=== PATIENT | female | born 1975 | race Caucasian/White ===

== ENCOUNTER 2019-04-28 06:21 | Observation (INO) ==
--- NOTE | 2019-04-05 12:42 | Anesthesiology Consultation ---
Date of Service April 05, 2019 Assessment & Plan (1) Encounter for pre-operative examination: - Check test AM DOS Chart Review Chart Review: Pending: Refer to Additional Notes / Consult section (pending p reop testing (labs)) and Patient seen in Pre Admission Testing Teaching & Discussion Pre-Anesthesia Teaching/Discussion Notes: Instructed NPO after midnight before surgery,except medications with 15 cc of water. Medication instructions provided according to the PAT guidelines. History Surgery Operation Date: 04/28/19 08:35 Proposed Procedures p Robotic Total Laparoscopic Hysterectomy - rKisty Colon DO Height/Weight Height: 5 ft 7 in Weight: 82 kg Allergies Allergy/AdvReac Type Severity Reaction Status Date / Time No Known Drug Allergies Allergy Verified 03/31/19 13:37 Medications Home Medications Medication Instructions Recorded Confirmed Last Taken lactobacillus combination no.4 3,000 mmu cells PO QAM 03/31/19 03/31/19 Unknown [Probiotic] Past Medical History Medical History Anemia Crohns disease "in remission" s/p bowel resection Endometriosis Menorrhagia Pelvic pain Exercise / Class Metabolic Activity II 4-5 Yardwork/Stairs/Walk up hill Past Family History Family History Sister Family history of diabetes mellitus Father Family history of diabetes mellitus Coronary heart disease Hypertension Grandmother (Paternal) Family history of diabetes mellitus Grandmother (Maternal) Family hx of colon cancer Colorectal cancer Mother Breast cancer Hypertension Atrial fibrillation Grandfather (Paternal) Myocardial infarction Aunt Ovarian cancer Son No problems noted. Other No family history of adverse response to anesthesia Past Surgical History Surgical History History of bilateral tubal ligation History of bowel resection 6 inches History of cardiac cath 10+ YEARS AGO= NO STENTS History of colonoscopy History of endometrial ablation History of esophagogastroduodenoscopy (EGD) History of wisdom tooth extraction Hx of LASIK S/P dilation and curettage Past Anesthesia History No Hx of Anesthesia Complications and No Family Hx of Anesthesia Complications History of PONV No Hx of PONV and No Hx of Motion Sickness Social History Smoking Status: Never smoker Do You Dip or Chew Tobacco: No Hx Alcohol Use: Yes Alcohol type: hard liquor alcohol intake frequency: holidays/special occasions only Hx Substance Use: No substance use type: does not use Review of Systems URI symptoms resolved. Patient denies chest pain, shortness of breath, dyspnea on exertion, wheezing, palpitations. Physical Exam Vital Signs VITALS BP 131/86 P 63 TEMP 98.5 SP02 98%RA RESP 18 PHYSICAL Full neck and c-spine range of motion. Full TMJ range of motion. TMD 3.5 finger breaths Mallampati Score 2 Dentition: intact Lungs: clear throughout to auscultation Cardiac: regular rate and rhythm, no murmurs noted Spine: normal Carotid arteries: negative bruit Extremities: no edema
[2019-04-05 13:07] LABS: Basophils # (auto) 0.05 K/uL (0-0.2); Basophils % (auto) 0.7 %; Eosinophils # (auto) 0.05 K/uL (0-0.5); Eosinophils % (auto) 0.7 %; Hematocrit (blood only) 39.2 % (37-47); Hemoglobin 13.6 g/dL (12.0-16.0); Immature Granulocytes # (auto) 0.02 K/uL (0.00-0.02); Immature Granulocytes % (auto) 0.3 %; Lymphocytes # (auto) 2.06 K/uL (1.2-3.4); Lymphocytes % (auto) 28.7 %; Mean Corpuscular Hemoglobin 30.7 pg (25-34); Mean Corpuscular Hgb Conc 34.7 g/dL (32-36); Mean Corpuscular Volume 88.5 fL (80-100); Mean Platelet Volume 10.1 fL (7.4-10.4); Monocytes # (auto) 0.31 K/uL (0.11-0.59); Monocytes % (auto) 4.3 %; Neutrophils % (auto) 65.3 %; Platelet Count 255 K/uL (130-400); RDW Coefficient of Variation 12.8 % (11.5-14.5); RDW Standard Deviation 41.7 fL (36.4-46.3); Red Blood Count 4.43 M/uL (4.2-5.4); White Blood Count 7.19 K/uL (4.8-10.8)
[2019-04-05 13:14] LABS: Appearance Urine Turbid (Clear); Bacteria Urine Automated Negative (Negative); Blood Urine 3+ (Negative); Epithelial Cell Urine Auto >30 /lpf (0-5); Glucose Urine UA Negative (Negative); Ketones Urine Trace (Negative); Leukocyte Esterase Urine 1+ (Negative); Nitrite Urine Negative (Negative); Protein Urine 2+ (Negative); RBC Urine Automated >30 /hpf (0-4); Specific Gravity Urine 1.036 (1.000-1.030); Urobilinogen Urine Negative (Negative)
[2019-04-05 13:15] LABS: Color Urine Amber
[2019-04-05 13:27] LABS: Bilirubin Urine Negative (Negative); Ictotest Urine Negative (Negative)
[2019-04-05 14:57] LABS: BUN Creatinine Ratio 30.2 (10-20); Calcium 9.1 mg/dl (8.5-10.1); Creatinine Clr Calc Pharmacy 112.1 ml/min; Est GFR (African American) 119.7; Est GFR (Non-African American) 103.3
[~2019-04-28 06:21] MED LIST: CEFAZOLIN 2000MG 2,000 MG/15 ML SYR IV SCH; LR 15ML/HR IV SCH
[2019-04-28] MEDS ORDERED: MIDAZOLAM HCL 1 MG/ML 2ML VIAL ONE (06:33)
[2019-04-28] MEDS ORDERED: fentaNYL citrate 100 MCG/2 ML VIAL ONE ×2 (06:33→07:48)
[2019-04-28] MEDS ORDERED: ACETAMINOPHEN 1000 MG/100 ML IV IV ONE (06:50)
[2019-04-28] MEDS ORDERED: BUPIVACAINE 0.5 % 5 MG/1 ML MPF 30ML VIAL ONE (06:54)
[2019-04-28] MEDS ORDERED: METHYLENE BLUE 0.5% 10 ML VIAL ONE (06:54)
[2019-04-28] MEDS ORDERED: ROCURONIUM BROMIDE 10 MG/ML 5 ML VIAL ONE ×3 (06:55→08:27)
[2019-04-28] MEDS ORDERED: LIDOCAINE HCL 2% 2 ML VIAL/AMP(20MG/ML) INFIL ONE (06:55)
[2019-04-28] MEDS ORDERED: PROPOFOL IV EMULSION 10 MG/ML 20 ML VIAL IV ONE (06:55)
[2019-04-28] MEDS ORDERED: DEXAMETHASONE SOD INJ 4 MG/ML VIAL ONE (06:55)
[2019-04-28] MEDS ORDERED: ONDANSETRON INJ 2 MG/ML 2 ML VIAL ONE (06:55)
[2019-04-28] MEDS ORDERED: ONDANSETRON INJ 2 MG/ML 2 ML VIAL IV PRN ×2 (07:06→10:31)
[2019-04-28] MEDS ORDERED: ePHEDrine sulfate 50 MG/ML AMP IV PRN (07:06)
[2019-04-28] MEDS ORDERED: ATROPINE SULFATE 0.1 MG/ML 10ML SYR IV PRN (07:06)
--- NOTE | 2019-04-28 07:23 | History & Physical Bridge Note ---
Date of Service April 28, 2019 History & Physical Bridge Note I have examined the patient, reviewed the History & Physical and in the interval since the performance of the History & Physical I have noted the following changes of clinical significance: no changes noted
[2019-04-28] MEDS ORDERED: HYDROmorphone INJ 2 MG/ML SYR/VIAL ONE (08:28)
[2019-04-28] MEDS ORDERED: GLYCOPYRROLATE 0.2 MG/ML VIAL ONE (10:09)
[2019-04-28] MEDS ORDERED: NEOSTIGMINE METHYLSULFATE 5 MG/5 ML SYR ONE (10:09)
[2019-04-28] MEDS ORDERED: KETOROLAC 30 MG/ML VIAL IV PRN (10:31)
[2019-04-28] MEDS ORDERED: NALOXONE HCL 0.4 MG/1 ML VIAL/CARP IV PRN (10:31)
[2019-04-28] MEDS ORDERED: MAGNESIUM HYDROXIDE SUSP 30 ML UDC PO PRN (10:31)
[2019-04-28] MEDS ORDERED: IBUPROFEN 600 MG TAB PO PRN (10:31)
[2019-04-28] MEDS ORDERED: bisacodyL 10 MG SUPP PR PRN (10:31)
[2019-04-28] MEDS ORDERED: PROMETHAZINE HCL 25 MG in SODIUM CHLORIDE 0.9% 50 ML IV PRN (10:31)
[2019-04-28] MEDS ORDERED: HYDROmorphone HCL 0.5MG/ML 50 ML CASSETTE IV PRN (10:31)
--- NOTE | 2019-04-28 10:31 | Post Operative Brief Note ---
PG Immediate Post Op with CF Date of Surgery April 28, 2019 Pre & Post Diagnosis Operation Date: 04/28/19 07:30 Pre-Op Diagnosis: Menorrhagia, Anemia, Pelvic pain Post-Op Diagnosis: Menorrhagia, Anemia, Pelvic pain I identified the patient and participated in the time-out.: Yes Procedure Operation Date: 04/28/19 07:30 Actual Procedures p Total Abdominal Hysterectomy, bilateral salpingectomy - Kristy Colon DO Surgeon Kristy Colon DO Shearing Shed Worker Comfort Dixon MD Estimated Blood Loss 50 Findings See Below Uterus with small fibroid, posterior aspect. Small implants of endometriosis. Normal appearing bilateral ovaries. Tubes s/p tubal ligation. Large amount of adhesive disease between bowel/peritoneum, omentum/peritoneum, mostly on left abdomen/left pelvis. Fluids 1100ml Specimens Specimen Description: Permanent Specimen A: Uterus, cervix, and bilateral fallopian tubes Drains Maki Catheter (275 clear yellow) Anesthesia Type General Disposition Accompanied Patient To Recovery: No Disposition: Recovery Room
[2019-04-28] MEDS ORDERED: SODIUM CHLORIDE 0.9% 1000ML 1,000 ML IV SCH (10:45)
[2019-04-28] MEDS: fentaNYL citrate 100 MCG/2 ML VIAL IV PRN ×4 (10:52→11:29)
--- NOTE | 2019-04-28 12:09 | Anesthesiology Progress Note ---
Date of Service April 28, 2019 Anesthesia Post Procedure Vital Signs Vital Signs: Temp Pulse Pulse Resp BP BP Pulse Ox 04/28/19 12:05 98.8 F 80 15 138/91 96 04/28/19 11:50 68 13 124/86 99 04/28/19 11:40 87 18 125/85 99 04/28/19 11:30 66 15 124/82 99 04/28/19 11:20 98.6 F 89 19 130/85 100 04/28/19 11:10 64 16 132/78 99 04/28/19 11:00 66 18 127/81 99 04/28/19 10:50 72 25 H 122/77 99 04/28/19 10:42 98.6 F 73 23 121/80 99 04/28/19 06:40 98.2 F 78 18 149/96 H 97 Pain Intensity Lower Anterior Abdomen: Pain Intensity: 5 Transfer of Care Handoff Completed per policy Notes Mental Status: alert / awake / arousable and participated in evaluation Patient Amnestic to Procedure: Yes Nausea / Vomiting: adequately controlled Pain: adequately controlled Airway Patency, RR, SpO2: stable & adequate BP & HR: stable & adequate Hydration State: stable & adequate Anesthetic Complications: no major complications apparent and Pt Satisfied with anesthetic care
[2019-04-28] MEDS ORDERED: HYDROmorphone Bolus from PCA IV STA (12:20)
[2019-04-28] MEDS: HYDROmorphone PCA 30 MG/30 ML IV PRN ×2 (13:11→23:43)
--- NOTE | 2019-04-28 17:28 | Operative Report ---
PG Post Operative Report Pre & Post Diagnosis Operation Date: 04/28/19 07:30 Pre-Op Diagnosis: Menorrhagia, Anemia, Pelvic pain Post-Op Diagnosis: Menorrhagia, Anemia, Pelvic pain I identified the patient and participated in the time-out.: Yes Procedure Operation Date: 04/28/19 07:30 Actual Procedures s Attempted Laparoscopic Total Hysterectomy(Not Applicable) - Kristy Colon DO p Abdominal Open Total Hysterectomy and Bilateral Salpingectomy(Not Applicable) - Kristy Colon DO Surgeon Kristy Colon DO Steam Conditioning Operator Comfort Dixon MD Estimated Blood Loss 50 Findings See Below Fluids Uterus with small fibroid, posterior aspect. Small implants of endometriosis. Normal appearing bilateral ovaries. Tubes s/p tubal ligation. Large amount of adhesive disease between bowel/peritoneum, omentum/peritoneum, mostly on left abdomen/left pelvis. Specimens Uterus, bilateral fallopian tubes Drains Maki catheter, clear yellow Anesthesia Type General Complications none Disposition Accompanied Patient To Recovery: No Disposition: Recovery Room Indications Patient is a 43-year-old G1, P1 with a history of heavy menses and history of endometriosis. She had an endometrial ablation, tried OCP, these have not helped. She has cramping with bleeding and change the pad a few times per day when on her menstrual cycle. She felt like her symptoms were not helped at all by endometrial ablation or control, and is ready for permanent surgical solution. Her Pap smear in 2019 was normal. HPV negative. Endometrial biopsy 2019 was negative. She is a surgical history of tubal ligation, arthroscopic endometriosis resection, bowel resection and endometrial ablation. She desired hysterectomy to relieve symptoms. Description of Procedure Patient was seen in preoperative holding area, risks benefits alternatives to surgery reviewed. Elected to proceed with the case. She is taken the operating room, where 2 g of Ancef were given preoperatively. She received general anesthesia and was prepared and draped in the usual sterile fashion with feet in yellowfin stirrups in the dorsolithotomy position. Timeout was confirmed. A Maki catheter was placed in the bladder. A weighted speculum was placed in the vagina, the cervix was visualized and its anterior lip was grasped with single-tooth tenaculum. Stay sutures were used to transfix uterine manipulator to the cervix. Gloves were changed, attention was turned to the abdomen. Using the Optiview scope, the supraumbilical trocar was placed into the intra- abdominal cavity. Intra-abdominal placement was confirmed, and the abdomen was insufflated with CO2 gas. Cavity was visualized, and noted to have a large amount of adhesive disease. Bowel and omentum were both adhered to the abdominal wall, especially on the left abdominal side. This was so extensive, that I felt that it was impossible to place a lateral trocar at all. There were no clear areas on the left abdominal wall or any location that I felt safe to place instrumentation. There were multiple pockets of scar tissue. I felt that placing midline trochars and right-sided trochars only would prevent ability to work on the left side of the uterus. Therefore, I made the decision to convert to an open hysterectomy. I called patient's , Sharif, and discussed the need for conversion to open hysterectomy. He was agreeable. Patient and I have discussed this possibility in the office preoperatively and she was ready for this possibility. Laparoscopic instruments were removed, the fascial incision was reapproximated at the umbilicus with 0 Vicryl, the skin incision was reapproximated using 4-0 Vicryl in a running subcuticular stitch. The uterine manipulator was removed from the vagina. Her prior Pfannenstiel incision scar was to create a new Pfannenstiel incision, utilizing more space on the right side of the abdomen and then the left, due to known adhesive disease on her left side. This was taken down to the fascia, the fascia was nicked at midline, using Bovie over hemostat technique the fascia was . The superior aspect of the fascial incision was grasped with Marcie clamps x2, elevated off the underlying rectus abdominis muscles, and dissected with sharp and blunt dissection. A similar fashion, the inferior aspect of the fascial incision was dissected. The peritoneum was entered bluntly at midline, and this incision was extended. An O'Venu-O'Nieves retractor was placed in the cavity with bowel packed with moist lap sponges. Jayshree clamps were placed at the uterine cornua. Bilateral fallopian tubes were transected from their mesosalpinx using Bovie cautery. They were sent to pathology. The bilateral round ligaments were suture-ligated and transected. Bilateral sides of the uterus were skeletonized, and the bladder flap was taken down. Bilateral ureters were visualized peristalsing, and dissection of the broad ligament allowed these to fall laterally, and out of the field. The right utero-ovarian ligament was taken down and tied off with 0 Vicryl, a second suture was used to transfix this pedicle. In a similar fashion, the left utero- ovarian ligament was taken down. Bilateral uterine vessels were clamped with curved Michelle clamps, and these pedicles were transected and suture ligated with 0 Vicryl. Multiple pedicles were created on bilateral sides with straight [place] clamps. They were similarly suture-ligated. Right angle Michelle clamps were used to clamp just below the cervix, and the uterus and cervix were amputated from the vagina. The vaginal cuff was stitched closed in a running and locked stitch with removal of the right angle clamps. The pelvis was irrigated, all pedicles were evaluated, and found to be hemostatic. There was a small amount of oozing bleeding at the omentum, all bleeding areas were coagulated. Packing and retractor removed from the pelvis, the patient was then removed from Trendelenburg position, and reevaluated for hemostasis. Excellent hemostasis was observed. The fascial incision was reapproximated using 1 PDS in a running stitch. The subcutaneous tissue was irrigated, and found to be hemostatic. This was reapproximated using 2-0 plain gut suture in a running stitch. The skin was reapproximated using 4-0 Vicryl in a running subcuticular stitch. Steri-Strips and a bandage were applied to each incision. Patient was taken to the recovery area in stable and good condition. Sponge, instrument, needle counts correct at the conclusion of the case x2. I attest to the content of the Intraoperative Record and any orders documented therein. Any exceptions are noted below.
--- NOTE | 2019-04-28 18:14 | Gynecologic Progress Note ---
Date of Service April 28, 2019 Assessment & Plan (1) S/P total abdominal hysterectomy: POD#0 doing well. I discussed with her the events of surgery - attempt at laparoscopic approach, conversion to open hysterectomy. We discussed adhesive disease. Will increase ambulation, increase diet. Anticipate up and walking and tolerating PO by tomorrow morning. Will keep SCDs in place until she is fully ambulatory. When tolerating PO, will switch to PO pain meds and stop LICENSED STAFF MFT. Subjective POD#0. Doing well. Awake and talking. Using Dilaudid LICENSED STAFF MFT for pain control. Is also having some gas pains, will start simethicone. Has tolerated sips of clear liquids. Is not yet ambulatory, has SCDs in place. Physical Exam Physical Exam: Awake, alert, oriented. Abdomen is soft, appropriately tender. Nondistended. Bandages CDI. Results & Data Vital Signs (Past 12 Hours) Vital Signs Temp Pulse Pulse Pulse Resp BP BP 04/28/19 16:10 37.0 C 99 H 16 128/82 04/28/19 15:10 93 H 16 123/80 04/28/19 14:10 97 H 17 132/86 04/28/19 13:10 103 H 16 127/83 04/28/19 12:50 90 16 119/79 04/28/19 12:20 36.6 C 85 18 123/82 04/28/19 12:05 37.1 C 80 15 138/91 04/28/19 11:50 68 13 124/86 04/28/19 11:40 87 18 125/85 04/28/19 11:30 66 15 124/82 04/28/19 11:20 37 C 89 19 130/85 04/28/19 11:10 64 16 132/78 04/28/19 11:00 66 18 127/81 04/28/19 10:50 72 25 H 122/77 04/28/19 10:42 37 C 73 23 121/80 04/28/19 06:40 36.8 C 78 18 149/96 H Pulse Ox 04/28/19 16:10 96 04/28/19 15:10 100 04/28/19 14:10 99 04/28/19 13:10 99 04/28/19 12:50 95 04/28/19 12:20 96 04/28/19 12:05 96 04/28/19 11:50 99 04/28/19 11:40 99 04/28/19 11:30 99 04/28/19 11:20 100 04/28/19 11:10 99 04/28/19 11:00 99 04/28/19 10:50 99 04/28/19 10:42 99 04/28/19 06:40 97
[2019-04-28] MEDS: SIMETHICONE 80 MG CHEW PO PRN (18:39)
[2019-04-28] MEDS: DOCUSATE SODIUM 100 MG CAP PO SCH (20:37)
[2019-04-28] MEDS: LACTATED RINGER'S 1,000 ML IV SCH (23:01)
[2019-04-29] MEDS: SIMETHICONE 80 MG CHEW PO PRN ×2 (00:30→15:13)
[2019-04-29] MEDS: LACTATED RINGER'S 1,000 ML IV SCH ×2 (06:22→13:20)
[2019-04-29 06:43] LABS: Basophils # (auto) 0.05 K/uL (0-0.2); Basophils % (auto) 0.5 %; Eosinophils # (auto) 0.07 K/uL (0-0.5); Eosinophils % (auto) 0.7 %; Hematocrit (blood only) 38.6 % (37-47); Hemoglobin 13.3 g/dL (12.0-16.0); Immature Granulocytes # (auto) 0.02 K/uL (0.00-0.02); Immature Granulocytes % (auto) 0.2 %; Lymphocytes # (auto) 1.55 K/uL (1.2-3.4); Lymphocytes % (auto) 16.4 %; Mean Corpuscular Hemoglobin 31.3 pg (25-34); Mean Corpuscular Hgb Conc 34.5 g/dL (32-36); Mean Corpuscular Volume 90.8 fL (80-100); Mean Platelet Volume 10.2 fL (7.4-10.4); Monocytes # (auto) 0.52 K/uL (0.11-0.59); Monocytes % (auto) 5.5 %; Neutrophils # (auto) 7.23 K/uL (1.4-6.5); Neutrophils % (auto) 76.7 %; Platelet Count 195 K/uL (130-400); RDW Coefficient of Variation 13.3 % (11.5-14.5); RDW Standard Deviation 43.7 fL (36.4-46.3); Red Blood Count 4.25 M/uL (4.2-5.4); White Blood Count 9.44 K/uL (4.8-10.8)
[2019-04-29 07:14] LABS: BUN Creatinine Ratio 19.8 (10-20); Calcium 8.6 mg/dl (8.5-10.1); Creatinine Clr Calc Pharmacy 155.2 ml/min; Est GFR (African American) 136.6; Est GFR (Non-African American) 117.8
[2019-04-29] MEDS ORDERED: ACETAMINOPHEN 500 MG TAB PO PRN (07:18)
--- NOTE | 2019-04-29 07:29 | Gynecologic Progress Note ---
Date of Service April 29, 2019 Assessment & Plan (1) S/P total abdominal hysterectomy: POD#1 s/p CEDRIC,BROOKE. Doing well. Will plan to advance diet today, when she is tolerating PO, will switch to PO percocet. She has been told by GI that she should avoid Motrin due to her Crohn's disease, therefore will stick with PO percocet, and PO tylenol if she does not need the opioid component. Incentive spirometer ordered, SCDs when nonambulatory. Labs reviewed, normal. Anticipate DC home tomorrow. Subjective POD#1 doing well. 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 Ambulating somewhat in room, is sitting upright in chair. Large amount of clear urine output overnight in ramirez, this was removed this morning. Pain is somewhat controlled - the gas pains are bothersome to her. Passing small amounts of flatus. Physical Exam Physical Exam: Constitutional: alert, in no acute distress, well nourished, w ell developed and healthy appearing. Skin: normal skin color and pigmentation, normal skin turgor and no rash. Pulmonary: no respiratory distress, normal respiratory rhythm and effort and clear bilateral breath sounds. Cardiovascular: heart rate and rhythm were normal, normal S1 and S2 and no murmurs present. Abdomen: soft, non-tender, incision still bandaged - ok to take off 24h after surgery. Neurological: The patient was oriented to person, place, and time. Mood and affect were appropriate. Extremities: No edema, no calf tenderness. Results & Data Vital Signs (Past 12 Hours) Vital Signs Temp Pulse Resp BP Pulse Ox 04/29/19 04:00 37 C 92 H 15 153/94 H 98 04/28/19 23:20 37 C 88 15 143/95 H 98 04/28/19 19:40 36.9 C 96 H 17 142/86 H 97
[2019-04-29] MEDS: LACTOBACILLUS ACIDOPHILUS (FLORANEX) TAB PO SCH (09:06)
[2019-04-29] MEDS: OXYCODONE/ACETAMINOPHEN 5mg/325mg TAB PO PRN ×4 (09:06→21:10)
[2019-04-29] MEDS: DOCUSATE SODIUM 100 MG CAP PO SCH ×2 (09:06→21:14)
--- NOTE | 2019-04-29 14:43 | Anesthesiology Progress Note ---
Date of Service April 29, 2019 Anesthesia Post Procedure Vital Signs Vital Signs: Temp Pulse Resp BP Pulse Ox 04/29/19 12:20 36.3 C L 82 20 134/92 99 04/29/19 07:25 37 C 82 16 127/83 100 04/29/19 04:00 37 C 92 H 15 153/94 H 98 04/28/19 23:20 37 C 88 15 143/95 H 98 04/28/19 19:40 36.9 C 96 H 17 142/86 H 97 04/28/19 16:10 37.0 C 99 H 16 128/82 96 04/28/19 15:10 93 H 16 123/80 100 Pain Intensity Lower Anterior Abdomen: Pain Intensity: 4 Notes Mental Status: alert / awake / arousable Patient Amnestic to Procedure: Yes Nausea / Vomiting: adequately controlled Pain: adequately controlled Airway Patency, RR, SpO2: stable & adequate BP & HR: stable & adequate Hydration State: stable & adequate Anesthetic Complications: no major complications apparent and Pt Satisfied with anesthetic care
[2019-04-30 06:11] LABS: Basophils # (auto) 0.03 K/uL (0-0.2); Basophils % (auto) 0.4 %; Eosinophils # (auto) 0.29 K/uL (0-0.5); Eosinophils % (auto) 4.2 %; Hematocrit (blood only) 35.7 % (37-47); Hemoglobin 12.1 g/dL (12.0-16.0); Immature Granulocytes # (auto) 0.02 K/uL (0.00-0.02); Immature Granulocytes % (auto) 0.3 %; Lymphocytes # (auto) 1.22 K/uL (1.2-3.4); Lymphocytes % (auto) 17.8 %; Mean Corpuscular Hgb Conc 33.9 g/dL (32-36); Mean Corpuscular Volume 91.5 fL (80-100); Mean Platelet Volume 10.2 fL (7.4-10.4); Monocytes # (auto) 0.51 K/uL (0.11-0.59); Monocytes % (auto) 7.5 %; Neutrophils # (auto) 4.77 K/uL (1.4-6.5); Neutrophils % (auto) 69.8 %; Platelet Count 170 K/uL (130-400); RDW Coefficient of Variation 13.4 % (11.5-14.5); RDW Standard Deviation 44.4 fL (36.4-46.3); White Blood Count 6.84 K/uL (4.8-10.8)
[2019-04-30 06:40] LABS: BUN Creatinine Ratio 16.7 (10-20); Calcium 8.7 mg/dl (8.5-10.1); Creatinine Clr Calc Pharmacy 183.4 ml/min; Est GFR (African American) 144.3; Est GFR (Non-African American) 124.5; Potassium 3.6 mmol/L (3.5-5.1)
[2019-04-30] MEDS: LACTOBACILLUS ACIDOPHILUS (FLORANEX) TAB PO SCH (07:36)
[2019-04-30] MEDS: DOCUSATE SODIUM 100 MG CAP PO SCH (07:36)
[2019-04-30] MEDS: OXYCODONE/ACETAMINOPHEN 5mg/325mg TAB PO PRN (07:37)
--- NOTE | 2019-04-30 08:28 | Gynecologic Progress Note ---
Date of Service April 30, 2019 Assessment & Plan (1) S/P total abdominal hysterectomy: POD#2 doing well. DC home. Instructions discussed. Questions answered. picked up Rx for percocet yesterday. Followup in office 6w. Subjective POD#2 doing well. Ambulating. Had a bowel movement. No vaginal bleeding. Eating/drinking well. Feels ready to go home. Physical Exam Physical Exam: Constitutional: alert, in no acute distress, well nourished, well developed and healthy appearing. Skin: normal skin color and pigmentation, normal skin turgor and no rash. Pulmonary: no respiratory distress, normal respiratory rhythm and effort and clear bilateral breath sounds. Cardiovascular: heart rate and rhythm were normal, normal S1 and S2 and no murmurs present. Abdomen: soft, non-tender, no abdominal mass palpated and no hepato- splenomegaly. No hernias were discovered. Incisions CDI, steri strips. Nondistended. +bowel sounds Neurological: The patient was oriented to person, place, and time. Mood and affect were appropriate. Extremities: No edema, no calf tenderness. Results & Data Vital Signs (Past 12 Hours) Vital Signs Temp Pulse Resp BP Pulse Ox 04/30/19 07:30 36.9 C 95 H 16 121/79 97 04/29/19 23:20 36.9 C 92 H 14 107/67 96 04/29/19 21:00 36.9 C 90 16 125/80 98
--- NOTE | 2019-04-30 08:30 | Discharge Summary ---
Date of Service April 30, 2019 Discharge Data Procedures Performed Operation Date: 04/28/19 07:30 Actual Procedures s Attempted Laparoscopic Total Hysterectomy(Not Applicable) - Kristy Colon DO p Abdominal Open Total Hysterectomy and Bilateral Salpingectomy(Not Applicable) - Kristy Colon DO Hospital Course (1) S/P total abdominal hysterectomy: Patient was admitted following total abdominal hysterectomy, bilateral salpingectomy. Please see operative report for further details of surgery. 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 Routine postop recovery. Discharged to home POD#2. Follow up in office in 2 and 6 weeks postop. Rx percocet.
== END 2019-04-30 09:31 | disposition home or self-care (01) | DRG 743 ==
LOC: ASU 06:21 → 4N 10:31 → INTOOBSV 10:31